=== PATIENT | female | born 1955 ===

== ENCOUNTER 2019-01-22 08:54 | Day surgery (SDC) | payer OTHER ==
[2019-01-22] VITALS (8 sets, daily range): BP systolic 153–170; BP diastolic 79–88
[~2019-01-22] VITALS: Ht 152.4 cm; Wt 81.2 kg
--- NOTE | 2019-01-22 06:48 | Anethesia Preoperative Eval ---
Anesthesia Pre-op PMH/ROS General Date of Evaluation: Jan 22, 2019 Time of Evaluation: 06:47 Anesthesiologist: libby ASA Score: ASA 3 Mallampati Score Class I : Soft palate, uvula, fauces, pillars visible Class II: Soft palate, uvula, fauces visible Class III: Soft palate, base of uvula visible Class IV: Only hard plate visible Mallampati Classification: Class II Surgeon: dena Diagnosis: abdominal pain, GERD Surgical Procedure: egd/colonoscopy Anesthesia History: none Social History: smoking - nonsmoker Family History: no anesthesia problems Allergies: Coded Allergies: IODINE (Verified Allergy, Severe, 01/22/19) difficulty swallowing Medications: see eMAR Patient NPO?: Yes Past Medical History Cardiovascular: Reports: HTN Pulmonary: Reports: asthma Gastrointestinal/Genitourinary: Reports: GERD Endocrine: Reports: DM Other: obesity Anesthesia Pre-op Phys. Exam Physician Exam Constitutional: NAD Neurologic: CN 2-12 intact Cardiovascular: RRR Respiratory: CTA Gastrointestinal: S/NT/ND Airway Exam Mallampati Score: Class II MO: limited Neck: short TMD: 2fb ROM: limited Teeth: missing Anesthesia Pre-op A/P Labs Accucheck 199 Risk Assessment & Plan Assessment: asa3 Plan: mac Status Change Before Surgery: No Pre-Antibiotics Drug: Marguerite Bradford MD Jan 22, 2019 06:48
[~2019-01-22 08:54] MED LIST: Atropine Inj 1mg/10ml Syr IV PRN; DiphenhydrAMINE 50mg/ml Inj IVP PRN; LR 1000ml 1,000 ML IVLG SCH; Midazolam 2mg/2ml Inj IVP PRN; fentaNYL 100 mcg/2 mL IV PRN
--- NOTE | 2019-01-22 09:03 | Short Stay Surgery H&P ---
History of Present Illness History of Present Illness Chief Complaint Abdominal pains/ heartburn/rectal bleeding HPI Frances Noel is a 63 year old female who was admitted on for Abdominal Pain , Gerd/rectal bleeding Patient History Allergies: Coded Allergies: No Known Allergies (Unverified , 01/21/19) Past Surgeries: (1) History of (2) History of tubal ligation (3) History of hysterectomy Review of Systems Cardiovascular: Reports: no symptoms Respiratory: Reports: asthma Skeletal: Reports: trauma Gastrointestinal: Reports: gastro esophageal reflux disease Genitourinary: Reports: no symptoms Neurologic: Reports: no symptoms Endocrine: Reports: diabetes - type 2 Hematologic: Reports: no symptoms Physical Exam Skin: normal HENT: normal Heart: normal Lungs: normal Abdomen: abnormal Extremities: normal Genitourinary: normal Plan Plan of Care Upper and the lower GI endoscopies. Preop Interventions None. Summary of Findings See the reports Attestation Are the patient's medical conditions optimized for surgery? Attestation Response: yes Micki Ozuna MD Jan 22, 2019 09:03
--- NOTE | 2019-01-22 09:04 | Pre-Procedure Note/Attestation ---
Pre-Procedure Note/Attestation Complete Prior to Procedure Planned Procedure: left Procedure Narrative: Examination of the upper and the lower GI tracts via endoscopy and obtaining biopsies Indications for Procedure Pre-Operative Diagnosis: R/O Peptic ulcer/gastritis/colitis/hemorrhoids Attestation I attest that I discussed the nature of the procedure; its benefits; risks and complications; and alternatives (and the risks and benefits of such alternatives ), prior to the procedure, with the patient (or the patient's legal premium service representative). I attest that, if there was a reasonable possibility of needing a blood transfusion, the patient (or the patient's legal premium service representative) was given the [place] [employer] standardized written summary, pursuant to the [place] Blood Safety Act ([place] Health and Safety Code # 1645, as amended). I attest that I re-evaluated the patient just prior to the surgery and that there has been no change in the patient's H&P, except as documented below: Micki Ozuna MD Jan 22, 2019 09:04
[2019-01-22] MEDS ORDERED: LISINOPRIL20 MG ORAL (09:21)
--- NOTE | 2019-01-22 09:25 | NUR ---
IV LR WAS STARTED BY ANABELA GUERRERO RN. NO S/S OF INFILTRATION.
[2019-01-22] MEDS ORDERED: Lidocaine 1% MPF 10mg/ml 5ml ONE (09:30)
[2019-01-22] MEDS ORDERED: Propofol 200mg/20ml IV ONE (09:30)
[2019-01-22] MEDS ORDERED: LR 1000ml ONE (09:30)
[2019-01-22] MEDS ORDERED: JANUMET 50-1,01 EACH ORAL (09:36)
--- NOTE | 2019-01-22 10:16 | Endoscopy Procedure Note ---
Endoscopy Procedure Note General Indication for Procedure: Abdominal pains/heartburn/rectal bleedings Procedures Performed: EGD - Mild gastritis otherwise wthin normal limits, biopsy taken from gastric body., colonoscopy - Evidence of pre rectitis,( cellulitis of pre-anal skin), with minimal internal hemorrhoids oterwise total colonoscopy completely normal. Specimen: yes Pt Tolerated Procedure Well: Yes Estimated Blood Loss: none Anesthesia Anesthesiologist: Dr. Clancy Anesthesia: moderate sedation Medications Medication Given: see anesthesia record Inserted Devices Implant(s) used?: No Quality Quality of Bowel Preparation: Good Did scope reach the cecum?: Yes Was there any complications?: No GI Core Measures 50 yrs or older w/o bx or poly: Yes 10yrs. F/U recommended: Yes If not recommended, why?: 18 years or older w/prev. colo: No <3yrs. since last colonoscopy: No Med reason:<3 yrs.: System Reason:<3 yrs.: Micki Ozuna MD Jan 22, 2019 10:16
--- NOTE | 2019-01-22 10:17 | Discharge Instructions ---
Discharge Instructions Discharge Instructions Follow up with: Visit the doctor in office after 2 weeks, call first. For Congestive Heart Failure Reminder Report to your physician any weight gain of 5 pounds or more in one week. Micki Ozuna MD Jan 22, 2019 10:17
--- NOTE | 2019-01-22 10:33 | Immediate Post-Op Evaluation ---
Immediate Post-Op Evalulation Immediate Post-Op Evalulation Procedure: egd/colonoscopy/bx Date of Evaluation: Jan 22, 2019 Time of Evaluation: 10:32 IV Fluids: 350ml lr Blood Products: none Estimated Blood Loss: negligible Blood Pressure Systolic: 153 Blood Pressure Diastolic: 82 Pulse Rate: 78 Respiratory Rate: 18 O2 Sat by Pulse Oximetry: 100 Temperature (Fahrenheit): 97.2 Pain Score (1-10): 0 Nausea: No Vomiting: No Complications none Patient Status: awake, reacts, patent Hydration Status: adequate Drug: Marguerite Bradford MD Jan 22, 2019 10:33
--- NOTE | 2019-01-22 10:36 | 48 Hour Post Anesthesia Eval ---
Post Anesthesia Evaluation Procedure: egd/colonoscopy/bx Date of Evaluation: Jan 22, 2019 Time of Evaluation: 10:34 Blood Pressure Systolic: 155 0: 83 Pulse Rate: 77 Respiratory Rate: 18 Temperature (Fahrenheit): 97.2 O2 Sat by Pulse Oximetry: 100 Airway: patent Nausea: No Vomiting: No Pain Intensity: 0 Hydration Status: adequate Cardiopulmonary Status: stable Mental Status/LOC: patient returned to baseline Post-Anesthesia Complications: none Follow-up care needed: N/A Marguerite Clancy MD Jan 22, 2019 10:36
--- NOTE | 2019-01-22 16:30 | Operative Note - Dictated ---
DATE OF OPERATION: 01/22/2019 SURGEON: Micki Ozuna M.D. PROCEDURE: Total colonoscopy. PREOPERATIVE DIAGNOSIS: History of rectal bleeding, generalized abdominal pain. POSTOPERATIVE DIAGNOSES: 1. Evidence of perirectitis/inflammatory process over the perianal skin compatible with cellulitis. 2. Minimal internal hemorrhoids, otherwise completely normal total colonoscopy up to the base of the cecum as examined. MEDICATION USED: Per Dr. Dougherty, anesthesiologist. INSTRUMENT: GIF Olympus video colonoscope. DESCRIPTION OF PROCEDURE: The patient after arriving at the endoscopy unit, was told about risks and benefits of the procedure, which she accepted and signed informed consent. She was put on the left lateral decubitus position. Subsequently, the scope was gradually advanced towards the anal area, which revealed evidence of moderate to significant inflammatory process with redness of the skin around the vagina and the anal area, which was suggestive of underlying cellulitis of this portion and possibly secondary to some irritation of the stool or infection ? However, the scope was gently passed through the anal area and a retroflexion maneuver was applied, which revealed evidence of minimal internal hemorrhoids that they were not friable and bleeding. At this time, the scope was gradually passed into the rectum, rectosigmoid, descending colon, the splenic flexure, transverse colon, hepatic flexure, and finally was guided into the right colon all the way to the base of the cecum. All these areas were completely normal. No evidence of any inflammatory process, ulcers, tumors, polyps, or stricture, etc. was found. No bleeding noted. The colon cleanup was good. At this time within 7 minutes the scope was gradually pulled out and procedure was terminated. The patient tolerated the procedure well and left the endoscopy room in a good condition. COMMENT: At this time, I prescribed triple antibiotics to be used by the patient over the inflamed area and around the rectum on a daily basis as well. Micki Ozuna M.D. DR: TAMIKO JOB#: [id number] CC:
--- NOTE | 2019-01-22 16:30 | Pre-op HX & Phy Repo 2 SIG ---
DATE OF ADMISSION: 01/22/2019 HISTORY OF PRESENT ILLNESS: The patient is a 63-year-old female, who is being seen prior to undergoing the procedure of upper and lower GI endoscopy for which she has been scheduled to receive for evaluation of gastrointestinal symptoms that she has been complaining, particularly occurring after her work injury. 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 Subsequently, she reports that she has been experiencing continuation of abdominal pain which is mostly over the epigastric area as well as the lower part of the abdomen moderate to severe in intensity. They are occurring on a daily basis and particularly associated with gastroesophageal acid reflux symptoms that she has had. She particularly reports that after taking food these pains are increasing. She also does complain of periods of nausea. In the past, she has been taking Zantac, which has been quite helpful in terms of controlling her reflux symptoms. However, she reports that subsequent to her injury, she was started on multiple medications including nonsteroidal anti-inflammatory agents such as ibuprofen that she is still taking and obviously this medication along with the side effects of other medications such as analgesics have caused most of the GI symptoms as well. She also has noticed that she does have some fluid coming over her chest during the night, which is quite cumbersome. She also reports that she has had frequent periods of rectal bleeding of minimal amount. All these conditions have not been adequately worked up in the past and the patient has not received any endoscopic procedures or x-rays. The applicant has been seen by other gastroenterologists who function as the panel qualified bio medical technician, who also recommended for her to undergo upper and lower gastrointestinal endoscopies as well for further diagnosis of her condition. She reports that she never had any GI condition before being injured at job site. PAST MEDICAL HISTORY: The patient has had multiple medical conditions including hypertension, diabetes mellitus, hyperlipidemia, arthritis, and possible asthma. PAST SURGICAL HISTORY: She has had two C-sections along with tubal ligation and hysterectomy in the past. ALLERGIES: Iodine. HABITS: The applicant denies drinking alcohol or smoking cigarettes. MEDICATIONS: Current medications are aspirin, lisinopril, Lantus insulin, metformin, and ibuprofen. REVIEW OF SYSTEMS: Basically history of present illness and currently the applicant is complaining of experiencing discomfort and pain over her vaginal area, which also on examination was quite irritated along perianal area, which was also seems to be involved in an inflammatory process and irritation with redness of the skin perianal area as well. PHYSICAL EXAMINATION: GENERAL: At this time reveals alert and well-oriented female, who does not seem to be in any acute distress. She answers the questions quite properly, but she is in acute pain of the lower abdominal area and to the anal sections that she is complaining of constantly. She looks obese and well developed. VITAL SIGNS: Temperature 97.2, pulse rate 79 per minute, respiratory rate 20 per minute, and blood pressure 159/79. O2 saturation 98% on room air. HEENT: Normocephalic. Pupils are equal in size and reactive to light and accommodation. No visible jaundice. Buccal cavity, tongue midline, well hydrated. No evidence of ulcerations or gingivitis. NECK: Supple. No JVD or thyromegaly. CHEST: Clear to auscultation and percussion. No rales or rhonchi. HEART: S1, S2 normal. Regular rhythm. No gallops or murmur. ABDOMEN: Extensively obese. There is significant tenderness all over the abdomen and epigastric area and particularly lower abdomen. There is no organomegaly or mass noted at this time. Bowel sounds are present. EXTREMITIES: Reveals basically normal finding except that as I mentioned there is also evidence of some inflammatory process over the above buttocks near the vagina and anal opening. NEUROLOGICAL: Within normal limits. PRELIMINARY PREOPERATIVE IMPRESSION: 1. History of epigastric pain and chronic gastroesophageal reflux, rule out NSAID-induced gastropathy, peptic ulcer disease, esophagitis. 2. Generalized abdominal pain of uncertain etiology, rule out colitis versus irritable bowel syndrome, aggravated by side effects of medication. 3. History of rectal bleeding of uncertain etiology, rule out hemorrhoids versus colitis, polyps, tumors. 4. Diabetes, hypertension, obesity and asthma. RECOMMENDATIONS: This applicant seems to be stable at this time to undergo the procedures of upper and lower GI endoscopy. She understands the risks and benefits of the procedure and also signed the consent form as such. Said dAam Ozuna DR: TAMIKO JOB#: [id number] CC:
--- NOTE | 2019-01-25 10:00 | Procedure Note ---
DATE OF PROCEDURE: 01/22/2019 SURGEON: Micki Ozuna M.D. PROCEDURE: Esophagogastroduodenoscopy with biopsy. PREOPERATIVE DIAGNOSES: Abdominal pain, history of chronic gastroesophageal reflux, rule out peptic ulcer disease, NSAID induced gastritis. POSTOPERATIVE DIAGNOSIS: Mild gastritis otherwise completely normal upper GI endoscopy. Biopsy was taken per random from gastric body. MEDICATION USED: Per Dr. Dougherty, anesthesiologist. INSTRUMENT: GIF Olympus upper GI video endoscope. DESCRIPTION OF PROCEDURE: The patient after arriving endoscopy unit, was told about risks and benefits of the procedure which she accepted and signed informed consent. She was then put on the left lateral decubitus position. After adequate IV sedation, the scope was gently passed through the cricopharyngeal area, was lodged into the upper esophagus and gradually advanced towards gastroesophageal junction. The entire length of the esophagus looked normal and there was no any evidence of any abnormalities such as tumors, polyps, etc. GE junction also looked completely normal. At this time, the scope was advanced into the stomach. Gastric cavity was distended and gradually the areas of the fundus and the body and the antrum of the stomach were examined, which revealed evidence of mild inflammatory process presenting with some mild erythema of the gastric coverage. However, there was no ulcers, tumors, polyps etc. The retroflexion maneuver was also applied and there was no any other abnormalities found. Finally, scope was passed through the antrum from there into pylorus. First and second portion of duodenum were found to be completely normal. At this point, a random biopsy from gastric body obtained and subsequently the procedure was terminated. The patient tolerated the procedure well. Micki Ozuna M.D. DR: Rylee JOB#: [id number] CC:
== END 2019-01-22 11:20 | disposition home or self-care (01) ==
LOC: GAS 08:54
DX: K62.5 Hemorrhage of anus and rectum (principal); R10.84 Generalized abdominal pain; K29.50 Unspecified chronic gastritis without bleeding; K64.8 Other hemorrhoids; E11.9 Type 2 diabetes mellitus without complications; I10 Essential (primary) hypertension; E66.9 Obesity, unspecified; K21.9 Gastro-esophageal reflux disease without esophagitis; Z79.82 Long term (current) use of aspirin; Z79.84 Long term (current) use of oral hypoglycemic drugs; Z90.710 Acquired absence of both cervix and uterus; E78.5 Hyperlipidemia, unspecified; M19.90 Unspecified osteoarthritis, unspecified site; Z91.041 Radiographic dye allergy status; Z68.35 Body mass index [BMI] 35.0-35.9, adult; B96.81 Helicobacter pylori [H. pylori] as the cause of diseases classified elsewhere
CPT/HCPCS: 43239; 45378; 82962; J2704; 94003; 94150